=== PATIENT | male | born 1955 | race Two or more races ===

== ENCOUNTER 2017-05-19 14:26 | Day surgery (SDC) | payer MEDICAID, OTHER ==
[2017-05-19 15:05] VITALS: TEMP 97.9
[2017-05-19] MEDS ORDERED: fentaNYL 100 MCG/2 ML INJ ONE (16:00)
[2017-05-19] MEDS ORDERED: MIDAZOLAM 2 MG/2 ML VIAL ONE (16:01)
--- NOTE | 2017-05-19 16:21 | PDGENHP ---
History & Physical Chief Complaint: diarrhea History of Present Illness: diarrhea Pertinent Past, Social, Family History: Not Applicable Relevant Physical Exam: cor RRR pul CTAP abd NT ms normal
[2017-05-19] MEDS ORDERED: MIDAZOLAM 2 MG/2 ML VIAL IVP ONE (16:30)
[2017-05-19] MEDS ORDERED: fentaNYL 100 MCG/2 ML INJ IVP ONE (16:30)
--- NOTE | 2017-05-19 16:44 | POSTOPPROG ---
Post Op Note Date of Operation: 05/19/17 Surgeon: Oskar Rendon Anesthesia: IV Sedation Pre-op Diagnosis: diarrhea Post-op Diagnosis: normal Indication: as above Procedure: colon Findings: as above Inf/Abcess present in the surg proc area at time of surgery?: No EBL: None Complications: None
[2017-05-19 16:54] VITALS: PULSE 56; RESP 14
[2017-05-19 17:25] VITALS: BP 130/79; O2SAT 98
--- NOTE | 2017-05-20 04:19 | GPN ---
[f rep st] PROCEDURE NOTE DATE OF PROCEDURE: 05/19/2017 PROCEDURE: Colonoscopy with a biopsy. INDICATIONS/PREPROCEDURE DIAGNOSIS: Recent left lower quadrant pain, with bloating, diarrhea and the n some alternating constipation. Now, doing well, with much less abdominal pain. He can still have some occasional bloating. His bowel movements are now quite regular. He is using flaxseed oil, whic h he feels helps. Of note, he has a known history of irritable bowel syndrome. He does not remember if dicyclomine as needed helped in the past or not. Otherwise, please see Dr. Elvia Rao's 03/30/20 17 GI consultation note. POSTPROCEDURE DIAGNOSIS: Normal terminal ilium, normal colonoscopy. PREMEDICATION: Fentanyl 100 mcg IV, Versed 6 mg IV. COMPLICATIONS: None. LENGTH OF PROCEDURE: Total time of procedure from sedation to procedures end was 24 minutes. FINDINGS: After informed consent was obtained, the patient was placed in the left lateral decubitus position. Video adult colonoscope was placed in rectum, advanced to the terminal ilium. Upon slow w ithdrawal, the above findings were noted. Random biopsies were done throughout the colon to rule out microscopic colitis. IMPRESSION: I suspect his recent symptoms were all due to his known irritable bowel syndrome. Now, doing better. He can still have some episodes of bloating. PLAN: 1. Dicyclomine 10-20 mg p.o. four times daily p.r.n. for abdominal bloating, as well as for any futu re crampy abdominal pain. 2. Biopsies pending to rule out microscopic colitis, but doubt. We will call him with these results in about 10 days. 3. Otherwise, he will follow up with his primary care physician as needed. Thank you for allowing me to help in the care of this patient. /[id number]/MODL
== END 2017-05-19 17:48 | disposition home or self-care (01) ==
LOC: FSGY 14:26
PROVIDERS: ATTEND Internal Medicine Gastroenterology
PROC: 0DBE8ZX Excision of Large Intestine, Via Natural or Artificial Opening Endoscopic, Diagnostic (ICD-10-PCS; principal; 2017-05-19 16:00)
DX: R10.32 Left lower quadrant pain (principal); R19.7 Diarrhea, unspecified; R14.0 Abdominal distension (gaseous); K58.0 Irritable bowel syndrome with diarrhea
CPT/HCPCS: J2250; J3010

== ENCOUNTER → 2018-05-31 | Outpatient (CLI) | payer OTHER | LOC: BMCIMAGING 15:57 | PROVIDERS: ATTEND Internal Medicine | DX: R05 Cough (principal) ==